=== PATIENT | female | born 1955 | race African-American/Black ===

== ENCOUNTER 2017-02-02 15:50 | Emergency (ER) | payer SELFPAY ==
[~2017-02-02 15:50] MED LIST: DENIES HOME MEDS; [UNRECOGNIZED DRUG - OTHER]
== END 2017-02-02 16:37 | disposition home or self-care (01) ==
LOC: ER 15:50
DX: L30.9 Dermatitis, unspecified (principal); K21.9 Gastro-esophageal reflux disease without esophagitis; F32.9 Major depressive disorder, single episode, unspecified; F41.9 Anxiety disorder, unspecified; D64.9 Anemia, unspecified; Z88.0 Allergy status to penicillin
CPT/HCPCS: 96372; 99282